=== PATIENT | female | born 1940 | race Caucasian/White ===

== ENCOUNTER 2017-11-12 23:21 | Inpatient (IN) | payer OTHER ==
[~2017-11-12] VITALS: Ht 162.6 cm; Wt 73.2 kg
[~2017-11-12 23:21] MED LIST: ADULT LOW STREN81 M2 PO; CATAPRES0.1 MG PO; CRESTOR20 MG PO; EMS NITROSTAT0.4 M1 S; TYLENOL WITH C1 EACH PO
[2017-11-12 23:49] LABS: HEMATOCRIT 41.2 % (36.0-46.0); HEMOGLOBIN 12.5 G/DL (11.9-15.5); MCH 28.7 PG (29.0-34.0); MCHC 30.3 G/DL (30.0-36.0); MCV 94.5 FL (83-99); PLATELET COUNT 224 K/uL (156-360); RBC DIS.WIDTH-CV 15.1 % (11.8-14.6); RBC DIS.WIDTH-SD 52.3 % (39-53); RED BLOOD COUNT 4.36 M/uL (3.80-5.20); WHITE BLOOD COUNT 12.1 K/uL (4.1-10.2)
[2017-11-13] VITALS (21 sets, daily range): BP systolic 135–199; BP diastolic 62–92
[2017-11-13] LABS: CHLORIDE 104 mEq/L (99-109); POTASSIUM 4.4 mEq/L (3.7-5.4); SODIUM 141 mEq/L (136-147)
[2017-11-13 00:01] LABS: GLUCOSE 220 mg/dL (70-99)
[2017-11-13 00:05] LABS: BASE EXCESS -1.4 mEq/L (-3 to +3); BICARBONATE 28.7 mEq/L (22-26); CARBOXY HGB 0 % (0-5); COMMENTS - BLOOD GASES C+A+; DEVICE VENTILATOR; FI02 100 %; MECHANICAL RATE 20 resp/min; METHEMOGLOBIN 0 % (0-1.5); MODE AC; PCO2 77 mm Hg (35-45); PEEP 5 CM/H20; PO2 200 mm Hg (80-100); SITE RR; TIDAL VOLUME 450 ML; TOTAL RESP RATE 20 resp/min
[2017-11-13 00:05] LABS: CREATININE 0.9 mg/dL (0.6-1.3); GFR ESTIMATE (CALCULATED) > 59 mL/min/
[2017-11-13 00:06] LABS: pH 7.18 (7.35-7.45)
[2017-11-13 00:06] LABS: UREA NITROGEN (BUN) 18 mg/dL (9-23)
[2017-11-13 00:10] LABS: TROP-I INTERPRETATION NEGATIVE; TROPONIN-I < 0.01 ng/mL (0.0-0.30)
[2017-11-13 00:14] LABS: APPEARANCE SL.HAZY ((CLEAR)); BILIRUBIN NEGATIVE; BLOOD NEGATIVE; COLOR YELLOW ((YELLOW)); GLUCOSE (STRIP) 150; KETONES NEGATIVE; LEUKOCYTES NEGATIVE; NITRITE NEGATIVE; PROTEIN (STRIP) >=500; SPECIFIC GRAVITY 1.013 (1.000-1.030); UROBILINOGEN 0.2 MG/DL (0.2-1.0)
[2017-11-13 00:20] LABS: BACTERIA RARE /HPF; EPITHELIAL CELLS RARE /HPF; HYALINE CASTS TNTC /LPF; MUCUS TRACE /LPF; UCUL ADDED? YES
[2017-11-13 00:32] LABS: INTER. NORMALIZED RATIO 1.1
[2017-11-13 00:34] LABS: AMPHETAMINE NEGATIVE (500 ng/mL); BARBITURATES NEGATIVE (200 ng/mL); BENZODIAZEPINES NEGATIVE (150 ng/mL); BUPRENORPHINE NEGATIVE (10 ng/mL); COCAINE NEGATIVE (150 ng/mL); METHADONE NEGATIVE (200 ng/mL); METHAMPHETAMINE NEGATIVE (500 ng/mL); OPIATES (MORPHINE) NEGATIVE (100 ng/mL); OXYCODONE NEGATIVE (100 ng/mL); PHENCYCLIDINE NEGATIVE (25 ng/mL); PROPOXYPHENE NEGATIVE (300 ng/mL); THC CANNABINOIDS NEGATIVE (50 ng/mL); TRICYCLIC ANTIDEPRESSANTS NEGATIVE (300 ng/mL)
[2017-11-13 00:34] LABS: PTT 31.4 SEC (25-37)
[2017-11-13 00:39] LABS: SERUM ETHYL ALCOHOL < 10 mg/dL
[2017-11-13] MEDS ORDERED: GABAPENTIN100 MG PO (01:17)
[2017-11-13] MEDS ORDERED: CYANOCOBAL1000 MCG/2 IM (01:18)
[2017-11-13] MEDS ORDERED: HYDROCHLOROTHIA25 MG PO (01:18)
[2017-11-13] MEDS ORDERED: LABETALOL HCL200 MG PO (01:18)
[2017-11-13] MEDS ORDERED: AMLODIPINE BESY10 MG PO (01:18)
[2017-11-13] MEDS ORDERED: BENICAR40 MG PO (01:19)
[2017-11-13] MEDS ORDERED: DULOXETINE HCL30 MG PO (01:19)
[2017-11-13] MEDS ORDERED: SYMBICORT60 INHALAT IH (01:19)
[2017-11-13] MEDS ORDERED: VENTOLIN HFA18 GM IH (01:20)
[2017-11-13 03:48] LABS: BASE EXCESS 2.8 mEq/L (-3 to +3); BICARBONATE 25.7 mEq/L (22-26); CARBOXY HGB 0 % (0-5); COMMENTS - BLOOD GASES C+A+; DEVICE VENTILATOR; FI02 80 %; MECHANICAL RATE 20 resp/min; METHEMOGLOBIN 0 % (0-1.5); MODE AC; PCO2 33 mm Hg (35-45); PEEP 5 CM/H20; PO2 229 mm Hg (80-100); SITE RR; TIDAL VOLUME 450 ML; TOTAL RESP RATE 20 resp/min
[2017-11-13 05:44] LABS: TRIGLYCERIDES 130 MG/DL (Normal: <150)
[2017-11-13 05:53] LABS: CARBOXY HGB 0 % (0-5); COMMENTS - BLOOD GASES C+A+; DEVICE VENT; FI02 50 %; MECHANICAL RATE 18 resp/min; METHEMOGLOBIN 0 % (0-1.5); MODE AC; PCO2 36 mm Hg (35-45); PEEP 5 CM/H20; PO2 135 mm Hg (80-100); SITE RR; TIDAL VOLUME 450 ML; TOTAL RESP RATE 18 resp/min; pH 7.41 (7.35-7.45)
[2017-11-13 05:54] LABS: BASE EXCESS -1.5 mEq/L (-3 to +3); BICARBONATE 22.8 mEq/L (22-26)
[2017-11-14] VITALS (19 sets, daily range): BP systolic 148–198; BP diastolic 60–82
[2017-11-14 05:45] LABS: HEMATOCRIT 34.3 % (36.0-46.0); HEMOGLOBIN 10.9 G/DL (11.9-15.5); MCH 28.1 PG (29.0-34.0); MCHC 31.8 G/DL (30.0-36.0); MCV 88.4 FL (83-99); RBC DIS.WIDTH-CV 15.1 % (11.8-14.6); RBC DIS.WIDTH-SD 49.3 % (39-53); RED BLOOD COUNT 3.88 M/uL (3.80-5.20); WHITE BLOOD COUNT 9.1 K/uL (4.1-10.2)
[2017-11-14 05:59] LABS: CHLORIDE 108 MEQ/L (99-109); CREATININE 0.5 MG/DL (0.6-1.3); GFR ESTIMATE (CALCULATED) > 59 mL/min/; GLUCOSE 199 mg/dL (70-99); SODIUM 141 MEQ/L (136-147); UREA NITROGEN (BUN) 15 mg/dL (9-23)
[2017-11-14 06:07] LABS: POTASSIUM 2.8 MEQ/L (3.7-5.4)
[2017-11-14 06:11] LABS: PLATELET COUNT 151 K/uL (156-360)
[2017-11-14 15:50] LABS: CHLORIDE 108 MEQ/L (99-109); CREATININE 0.7 MG/DL (0.6-1.3); GFR ESTIMATE (CALCULATED) > 59 mL/min/; GLUCOSE 224 mg/dL (70-99); SODIUM 139 MEQ/L (136-147); UREA NITROGEN (BUN) 19 mg/dL (9-23)
[2017-11-14 15:52] LABS: POTASSIUM 4.3 MEQ/L (3.7-5.4)
[2017-11-15] VITALS (12 sets, daily range): BP systolic 165–206; BP diastolic 65–96
[2017-11-16 03:38] VITALS: BP 174/73
[2017-11-16 05:23] VITALS: BP 174/77
[2017-11-16 07:24] VITALS: BP 187/82
[2017-11-16 12:33] VITALS: BP 173/77
[2017-11-16 14:55] VITALS: BP 163/77
[2017-11-16] MEDS ORDERED: CEFTIN500 MG PO (15:24)
[2017-11-16] MEDS ORDERED: HYDRALAZINE HCL50 MG PO (15:25)
[2017-11-16] MEDS ORDERED: SPIRIVA RESPIMAT4 GM IH (15:25)
[2017-11-16] MEDS ORDERED: PREDNISONE20 MG PO (15:27)
[2017-11-16] MEDS ORDERED: MONTELUKAST SOD10 MG PO (15:27)
== END 2017-11-16 16:47 | disposition home health service (06) | DRG 208 ==
LOC: EME → EDSEX 23:21 → EDBD 23:21 → EME 23:21 → 4WEST 11-13 02:23 → EDOF 11-13 02:23 → 5SOUTH 11-13 02:23 → 4EAST 11-13 02:23 → ENRESERV 11-13 02:25 → ENRESERVDT 11-13 02:32 → ENRESERVTM 11-13 02:32 → 4WEST 11-13 04:01 → ENRESERV 11-15 02:18 → 4EAST 11-15 02:30 → ENRESERV 11-15 13:06 → 5SOUTH 11-15 15:45 → ENPENDDIS 11-16 16:33 → 5SOUTH 11-16 16:47
PROVIDERS: Emergency Medicine; Hospitalist; Surgery
PROC: 5A1945Z Respiratory Ventilation, 24-96 Consecutive Hours (ICD-10-PCS; principal; 2017-11-12)
PROC: 0BH17EZ Insertion of Endotracheal Airway into Trachea, Via Natural or Artificial Opening (ICD-10-PCS; principal; 2017-11-12)
PROC: 5A09357 Assistance with Respiratory Ventilation, Less than 24 Consecutive Hours, Continuous Positive Airway Pressure (ICD-10-PCS; principal; 2017-11-12)
DX: J96.02 Acute respiratory failure with hypercapnia (principal); J45.31 Mild persistent asthma with (acute) exacerbation; J18.9 Pneumonia, unspecified organism; E87.4 Mixed disorder of acid-base balance; E78.5 Hyperlipidemia, unspecified; I10 Essential (primary) hypertension; I73.9 Peripheral vascular disease, unspecified; F32.9 Major depressive disorder, single episode, unspecified; J98.09 Other diseases of bronchus, not elsewhere classified; I25.10 Atherosclerotic heart disease of native coronary artery without angina pectoris; J20.9 Acute bronchitis, unspecified; I16.0 Hypertensive urgency; Z95.5 Presence of coronary angioplasty implant and graft; Z95.1 Presence of aortocoronary bypass graft
CPT/HCPCS: 36600; 70450; 71045; 71275; 80048; 80048 91; 81003; 82550; 82550 91; 82803; 82948; 83605; 83880; 84478; 84484; 85027; 85610; 85730; 87040; 87070; 87086; 87205; 87641; 93005; 94002; 94003; 94640 76; 94644; 94760; 94799; 99202; 99281; 99285; G0480; J0360; J0456; J0696; J1650; J2704; J2930; J3475; J3480; J7030; J7512; S0028